=== PATIENT | female | born 1995 | race Caucasian/White ===

== ENCOUNTER 2016-09-24 20:26 | Emergency (ER) | payer OTHER ==
[2016-09-24] MEDS ORDERED: AMOXICILLIN/CLAVULANATE POT 875/125 MG TAB PO ONE (20:44)
--- NOTE | 2016-09-24 20:46 | EDPHY ---
H & P Stated Complaint: dog bite to L cheek and lips Time Seen by Provider: 09/24/16 20:33 HPI/ROS: Chief complaint: Dog bite to face History of present illness: This is a 20-year-old female who presents to the emergency department for a dog bite to her face. This occurred just prior to arrival. She states a friend's dog nipped around the face. The dog is reported is healthy and up-to-date on immunizations. Patient is unsure about her own tetanus shot. She reports a small wound to the left cheek and around the right lip. She denies other associated signs or symptoms including no other trauma. No paresthesias in the face. She is opening closing her mouth well. No difficulty talking, swallowing or breathing. - Personal History LMP (Females 10-55): Over 28 Days Ago Current Tetanus/Diphtheria Vaccine: Yes Current Tetanus Diphtheria and Acellular Pertussis (TDAP): Yes - Medical/Surgical History Hx Asthma: No Hx Chronic Respiratory Disease: No Hx Diabetes: No Hx Cardiac Disease: No Hx Renal Disease: No Hx Cirrhosis: No Hx Alcoholism: No Hx HIV/AIDS: No Hx Splenectomy or Spleen Trauma: No Other PMH: denies - Social History Smoking Status: Never smoked - Physical Exam Exam: General Appearance: Alert, nontoxic. Eyes: Pupils equal and round no injection. EOM intact. ENT: No hemotympanum, no Kenny sign, no raccoon eyes. Patient is opening and closing her mouth without difficulty. Respiratory: Chest is non tender, lungs are clear to auscultation. Cardiac: regular rate and rhythm Musculoskeletal: Head is normocephalic, atraumatic. Neck is supple and non tender. Extremities have full range of motion and are non tender. Skin: Deep abrasion to the left cheek. Small abrasion inferior to the right naris. No intraoral lesions. Constitutional: Initial Vital Signs Temperature (C) 36.8 C 09/24/16 20:27 Heart Rate 102 H 09/24/16 20:27 Respiratory Rate 18 09/24/16 20:27 Blood Pressure 131/116 H 09/24/16 20:27 O2 Sat (%) 97 09/24/16 20:27 O2 Delivery Mode Room Air Allergies/Adverse Reactions: Sulfa (Sulfonamide Antibiotics) Allergy (Verified 04/13/14 10:35) Home Medications: Medication Instructions Recorded Amoxicillin/Clavulanate Pot 875 mg PO BID 5 Days 09/24/16 [Augmentin 875 MG TAB (*)] Medical Decision Making ED Course/Re-evaluation: Patient seen under the supervision of my secondary supervising physician Dr. Alexis Blum. Patient presents to the emergency department for a dog bite to her face. She is nontoxic. The dog is reported as healthy and up-to-date on immunizations. Patient is unsure of her tetanus shot and this is updated. The wounds are cleaned. I have inspected them. I do not believe these are repairable as they appear to be deep abrasions. They are dressed. She is started on Augmentin. She is discharged home. Home care is discussed. She is referred to Plastic surgery to follow her wounds. Home care is discussed. Return precautions are given. - Data Points Medications Given: Discontinued Medications Amoxicillin/Clavulanate Potassium (Augmentin 875mg) 875 mg PO EDNOW ONE PRN Reason: Protocol Stop: 09/24/16 20:45 Last Admin: 09/24/16 21:25 Dose: 875 mg Diphtheria/Tetanus/Acell Pertussis (Boostrix) 0.5 ml IM .ONCE ONE Stop: 09/24/16 20:58 Last Admin: 09/24/16 21:25 Dose: 0.5 ml Departure - Departure Disposition: Home, Routine, Self-Care Clinical Impression: Dog bite of face Qualifiers: Encounter type: initial encounter Qualified Code(s): S01.85XA - Open bite of other part of head, initial encounter; W54.0XXA - Bitten by dog, initial encounter Condition: Good Instructions: Animal Bite (ED) Additional Instructions: Follow-up with Plastic surgery next week for recheck Keep wounds clean with soap and water and dressed as discussed Take antibiotics as prescribed If symptoms worsen or new symptoms develop return to the emergency room for recheck Referrals: NONE *PRIMARY CARE P,. [Primary Care Provider] - As per Instructions Claire Mcallister JR, MD [Medical Doctor] - As per Instructions Prescriptions: Amoxicillin/Clavulanate Pot [Augmentin 875 MG TAB (*)] 875 mg PO BID 5 Days
[2016-09-24] MEDS ORDERED: TDAP ADULT 0.5 ML INJ (BOOSTRIX) IM ONE (20:57)
[2016-09-24 21:25] VITALS: BP 122/77; PULSE 70; RESP 14; TEMP 98.4; O2SAT 96
== END 2016-09-24 21:57 | disposition home or self-care (01) ==
DX: S01.85XA Open bite of other part of head, initial encounter (principal); Z23 Encounter for immunization; W54.0XXA Bitten by dog, initial encounter; Y93.89 Activity, other specified